=== PATIENT | male | born 1940 | race Hispanic/Latino ===

== ENCOUNTER → 2017-08-29 | Outpatient (CLI) | payer OTHER | END | disposition home or self-care (01) | LOC: RAH 13:02 | PROVIDERS: ATTEND Nurse Practitioner Family | DX: J90 Pleural effusion, not elsewhere classified (principal); I70.90 Unspecified atherosclerosis; J98.11 Atelectasis; K74.60 Unspecified cirrhosis of liver; R18.8 Other ascites | CPT/HCPCS: 71250 ==